=== PATIENT | male | born 1990 | race Caucasian/White ===

== ENCOUNTER 2019-08-13 14:23 | Inpatient (IN) ==
[2019-08-13] MEDS ORDERED: NS 0.9% 1000 ml BAG 1,000 ML IV ONE ×2 (14:32→17:34)
[2019-08-13] MEDS ORDERED: Tetan/Diph/Pertus SYR(Tdap)* 0.5 ML SYR(BOOSTRIX) use SYR contains LATEX IM ONE (14:32)
[2019-08-13 15:30] LABS: INR 0.97 (0.82-1.09)
[2019-08-13 15:33] LABS: ABS Lymphocytes 0.3 10^3/ul (1.0-4.8); ABS Monocytes 0.2 10^3/ul (0-0.8); Eosinophil % 0.1 %; Hematocrit 44 % (42-52); Hemoglobin 15.2 g/dL (14.0-18.0); Lymphocyte % 6.3 %; Mean Corpuscular HGB Conc 34 g/dL (31-36); Mean Corpuscular Hemoglobin 35 pg (27-31); Mean Corpuscular Volume 102 fL (80-94); Mean Platelet Volume 7.9 fL (7.4-10.4); Nucleated Red Blood Cells % 0.1; Platelet Count 132 10^3/uL (150-450); Red Blood Count 4.33 10^6 /uL (4.18-5.48); Red Cell Distribution Width 15 % (10-15)
[2019-08-13 15:40] LABS: Albumin 4.9 g/dL (3.2-5.2); Albumin/Globulin Ratio 1.6 (1-3); BUN/Creatinine Ratio 8.6 (8-20); Calcium 9.5 mg/dL (8.6-10.3); EGFR African American 135.4 (>60); EGFR Non-African American 111.9 (>60); Globulin 3.1 g/dL (2-4); Potassium 3.6 mmol/L (3.5-5.0); Total Bilirubin 0.9 mg/dL (0.2-1.0)
[2019-08-13] MEDS ORDERED: Thiamine 100 MG/ML 2 ml VIAL 100 MG, Folic Acid 1 MG, Multiple Vitamin IV ADULT 10 ML i... IV ONE (15:52)
[2019-08-13] MEDS ORDERED: Morphine 4 MG/ML VIAL (1 ml) IV ONE (17:35)
[2019-08-13 19:54] LABS: Albumin 4.2 g/dL (3.2-5.2); Albumin/Globulin Ratio 1.8 (1-3); BUN/Creatinine Ratio 7.5 (8-20); Calcium 8.2 mg/dL (8.6-10.3); EGFR African American 137.3 (>60); EGFR Non-African American 113.5 (>60); Globulin 2.4 g/dL (2-4); Potassium 3.6 mmol/L (3.5-5.0); Total Bilirubin 0.6 mg/dL (0.2-1.0); Total Protein 6.6 g/dL (6.4-8.9)
[2019-08-13] MEDS ORDERED: LORazepam 2 mg VIAL 1 ml IV PUSH ONE ×2 (20:10→20:53)
[2019-08-13] MEDS ORDERED: Lorazepam PYXIS KEY PRN ×2 (20:10→20:53)
[2019-08-13] MEDS ORDERED: Thiamine 100 MG/ML 2 ml VIAL (200 mg) IM ONE (21:11)
[2019-08-13] MEDS: NS 0.9% 1000 ml BAG 1,000 ML IV SCH (22:08)
[2019-08-13] MEDS: Multivitamins/Minerals TAB PO SCH (23:19)
[2019-08-14] MEDS: LORazepam 2 mg VIAL 1 ml IV PUSH SCH ×5 (00:11→11:54)
[2019-08-14] MEDS: Multivitamins/Minerals TAB PO SCH (07:39)
[2019-08-14] MEDS: NS 0.9% 1000 ml BAG 1,000 ML IV SCH ×2 (08:10→19:42)
[2019-08-14] MEDS ORDERED: Ondansetron 4 mg VIAL 2 MG/ML 2 ml VIAL IV PRN (10:43)
[2019-08-14 12:54] LABS: Folate 4.15 ng/mL (>3.99)
[2019-08-15] MEDS: LORazepam 2 mg VIAL 1 ml IV PUSH SCH ×2 (03:47→17:37)
[2019-08-15] MEDS: NS 0.9% 1000 ml BAG 1,000 ML IV SCH ×2 (05:50→19:13)
[2019-08-15 06:18] LABS: Albumin 4.1 g/dL (3.2-5.2); Albumin/Globulin Ratio 1.5 (1-3); BUN/Creatinine Ratio 5.2 (8-20); Calcium 9.5 mg/dL (8.6-10.3); EGFR African American 199.1 (>60); EGFR Non-African American 164.5 (>60); Globulin 2.8 g/dL (2-4); Potassium 3.8 mmol/L (3.5-5.0); Total Bilirubin 1.7 mg/dL (0.2-1.0); Total Protein 6.9 g/dL (6.4-8.9)
[2019-08-15] MEDS: Multivitamins/Minerals TAB PO SCH (08:55)
[2019-08-15 12:31] LABS: C Reactive Protein 2.32 mg/L (<8.01); Magnesium 1.5 mg/dL (1.9-2.7)
[2019-08-15 12:58] LABS: Hepatitis B Surface Antigen Nonreactive (Nonreactive)
[2019-08-15 13:16] LABS: Hepatitis C Antibody Negative (Negative)
[2019-08-15] MEDS ORDERED: Magnesium Sulfate IV 3 GM in NS 0.9% 100 ml BAG 100 ML IVPB ONE (15:47)
[2019-08-16] MEDS: NS 0.9% 1000 ml BAG 1,000 ML IV SCH (04:03)
[2019-08-16 06:20] LABS: ABS Basophils 0.1 10^3/ul (0-0.2); ABS Eosinophils 0.1 10^3/ul (0-0.6); ABS Lymphocytes 0.6 10^3/ul (1.0-4.8); ABS Monocytes 0.3 10^3/ul (0-0.8); Eosinophil % 2.1 %; Hematocrit 41 % (42-52); Hemoglobin 14.1 g/dL (14.0-18.0); Lymphocyte % 19.3 %; Mean Corpuscular HGB Conc 35 g/dL (31-36); Mean Corpuscular Hemoglobin 35 pg (27-31); Mean Corpuscular Volume 102 fL (80-94); Mean Platelet Volume 9.7 fL (7.4-10.4); Nucleated Red Blood Cells % 0.2; Platelet Count 86 10^3/uL (150-450); Red Blood Count 3.97 10^6 /uL (4.18-5.48); Red Cell Distribution Width 15 % (10-15); White Blood Count 3.2 10^3/uL (3.5-10.8)
[2019-08-16 06:34] LABS: Albumin 3.9 g/dL (3.2-5.2); Albumin/Globulin Ratio 1.5 (1-3); Calcium 9.1 mg/dL (8.6-10.3); EGFR African American 168.5 (>60); EGFR Non-African American 139.3 (>60); Globulin 2.6 g/dL (2-4); Potassium 3.7 mmol/L (3.5-5.0); Total Bilirubin 1.2 mg/dL (0.2-1.0); Total Protein 6.5 g/dL (6.4-8.9)
[2019-08-16] MEDS: Multivitamins/Minerals TAB PO SCH (09:06)
[2019-08-16 11:05] VITALS: BP 100/45
== END 2019-08-16 13:00 | disposition home or self-care (01) | DRG 775 ==
LOC: MEDTELE 14:23 → ED 14:23 → OBSVTOIN 22:43 → MEDTELE 22:54
PROVIDERS: ADMIT Internal Medicine; ATTEND Internal Medicine